=== PATIENT | male | born 1970 | race Caucasian/White ===

== ENCOUNTER 2018-06-03 11:39 | Emergency (ER) | payer MEDICAID ==
[2018-06-03] MEDS: SOD CHLORIDE 0.9% 1,000 ML IV (12:27)
[2018-06-03] MEDS: DIPHENHYDRAMINE 50 MG INJ IV (12:27)
[2018-06-03] MEDS: DEXAMETHASONE 10 MG/ML 1 ML INJ IV (12:27)
[2018-06-03] MEDS: METOCLOPRAMIDE 10 MG INJ IV (12:27)
[2018-06-03 12:36] LABS: ADD MAN DIFF? NO
[2018-06-03 12:40] LABS: BASOPHILS % 0.3 % (0.0-2.0); EOSINOPHILS # 0.2 10^3/ul (0.0-0.5); EOSINOPHILS % 2.2 % (0.0-7.0); HEMATOCRIT 43.1 % (42.0-52.0); HEMOGLOBIN 14.9 g/dl (14.0-18.0); LYMPHOCYTES # 2.7 10^3/ul (0.8-2.9); LYMPHOCYTES % 27.4 % (15.0-51.0); MEAN CORPUSCULAR HEMOGLOBIN 32.8 pg (29.0-33.0); MEAN CORPUSCULAR HGB CONC 34.6 g/dl (32.0-37.0); MEAN CORPUSCULAR VOLUME 94.9 fl (82.0-101.0); MEAN PLATELET VOLUME 11.6 fl (7.4-10.4); MONOCYTE # 0.9 10^3/ul (0.3-0.9); MONOCYTES % 9.4 % (0.0-11.0); NEUTROPHIL # 5.9 10^3/ul (1.6-7.5); NEUTROPHILS % 60.4 % (39.0-77.0); PLATELET COUNT 196 10^3/UL (140-415); RED BLOOD COUNT 4.54 10^6/ul (4.70-6.10); RED CELL DISTRIBUTION WIDTH 11.6 % (11.5-14.5)
[2018-06-03 12:40] LABS: WHITE BLOOD COUNT 9.7 10^3/ul (4.8-10.8)
[2018-06-03 12:59] LABS: ANION GAP 11 (5-13); BLOOD UREA NITROGEN 13 mg/dl (7-20); CALCIUM 9.6 mg/dl (8.4-10.2); CARBON DIOXIDE 25 mmol/L (21-31); CHLORIDE 106 mmol/L (97-110); Estimated GFR > 60 mL/min (>60); GLUCOSE 127 mg/dl (70-220); SODIUM 142 mmol/L (135-144)
[2018-06-03 13:00] LABS: INR 0.97; PARTIAL THROMBOPLASTIN TIME 26.9 Sec (23.0-35.0)
[2018-06-03 13:11] LABS: TROPONIN-I < 0.012 ng/ml (0.000-0.120)
== END 2018-06-03 13:50 | disposition home or self-care (01) ==
LOC: E/R 11:39
DX: R51 Headache (principal); R40.2142 Coma scale, eyes open, spontaneous, at arrival to emergency department; R40.2362 Coma scale, best motor response, obeys commands, at arrival to emergency department; R61 Generalized hyperhidrosis
CPT/HCPCS: 36415; 70450; 80048; 82962; 84484; 85025; 85610; 85730; 93005; 96374; 96375; 99285-25